=== PATIENT | male | born 1955 | race Caucasian/White ===

== ENCOUNTER → 2018-06-01 | Emergency (ER) | payer SELFPAY | END | disposition home or self-care (01) | LOC: FSED 12:26 | DX: Z53.21 Procedure and treatment not carried out due to patient leaving prior to being seen by health care provider (principal) ==

== ENCOUNTER 2018-06-18 07:39 | Inpatient (IN) | payer MEDICARE ==
[~2018-06-18] VITALS: Ht 185.4 cm; Wt 126.1 kg
[2018-06-18] VITALS (7 sets, daily range): BP systolic 152–173; BP diastolic 66–77
[2018-06-18] MEDS ORDERED: DIATRIZOATE MEGL/DIATRIZOA SOD 30 ML BTL PO ONE (08:11)
[2018-06-18] MEDS ORDERED: ONDANSETRON HCL INJ 2MG/ML 2ML 2 MG/ML VIAL IV PRN (08:45)
[2018-06-18] MEDS ORDERED: SODIUM CHLORIDE 0.9% 1000ML 1,000 ML IV ONE (08:45)
--- NOTE | 2018-06-18 09:00 | Diagnostic Imaging Report ---
EXAM: CHEST SINGLE (PORTABLE) DATE: 06/18/2018 8:00 AM INDICATION:Shortness of breath, abdominal distention COMPARISON: None FINDINGS: Lines and tubes: None Heart size normal. No focal pulmonary opacity, pleural effusion or pneumothorax. There is mild atelectasis at the left lung base. There are calcified densities projected on the right lung apex that may represent granulomatous calcifications in the lung or may be related to calcification of costochondral cartilages. No acute bony abnormality. Upper abdomen unremarkable. IMPRESSION: No evidence for acute disease. Signed by: Dr. Filiberto De Jesus M.D. on 06/18/2018 8:57 AM
--- OUTSIDE RECORDS SUMMARY | 2018-06-18 09:13 | XMS REPORT ---
Author Author [facility] Address Unknown Phone Unavailable Care Team Providers Care Social Staff Worker Name Role Phone Rae HONG Unavailable Unavailable Problems This patient has no known problems. Allergies, Adverse Reactions, Alerts This patient has no known allergies or adverse reactions. Medications This patient has no known medications. Results Test Description Test Time Test Comments Text Results Atomic Results Result Comments CHEST SINGLE (PORTABLE) 2018-06-18 08:50:00 [place] [id number] Patient Name: MYLES GUTIERREZ MR #: [id number] : 1955 Age/Sex: 63/M Req #: [id number] Adm Physician: Ordered by: CHRIS HONG MD Report #: [id number] Location: ER Room/Bed: Procedure: [id number] DX/CHEST SINGLE (PORTABLE) Exam Date: 06/18/18 Exam Time: 0831 REPORT STATUS: Signed EXAM: CHEST SINGLE (PORTABLE) DATE: 06/18/2018 8:00 AM INDICATION:Shortness of breath, abdominal distention COMPARISON: None FINDINGS: Lines and tubes: None Heart size normal. No focal pulmonary opacity, pleural effusion or pneumothorax. There is mild atelectasis at the left lung base. There are calcified densities projected on the right lung apex that may represent granulomatous calcifications in the lung or may be related to calcification of costochondral cartilages. No acute bony abnormality. Upper abdomen unremarkable. IMPRESSION: No evidence for acute disease. Signed by: Dr. Leigh Davis M.D. on 06/18/2018 8:57 AM Dictated By: LEIGH DAVIS MD 6 Transcribed By: CAROL on 06/18/18856 COPY TO: CHRIS HONG MD
[2018-06-18] MEDS ORDERED: DOXYCYCLINE HY100 MG PO (09:30)
[2018-06-18] MEDS ORDERED: FUROSEMIDE40 MG PO (09:30)
[2018-06-18 09:33] LABS: BASOPHILS # (AUTO) 0.1 (0.0-0.1); BASOPHILS % 0.9 % (0.0-1.0); EOSINOPHILS # (AUTO) 0.4 (0.0-0.4); EOSINOPHILS % 5.2 % (0.0-6.0); HEMATOCRIT 38.3 % (38.2-49.6); HEMOGLOBIN 13.1 g/dL (14.0-18.0); LYMPHOCYTES # (AUTO) 1.9 (1.0-3.2); LYMPHOCYTES % 26.7 % (18.0-39.1); MEAN CORPUSCULAR HEMOGLOBIN 32.9 pg (28-32); MEAN CORPUSCULAR HGB CONC 34.2 g/dL (31-35); MEAN CORPUSCULAR VOLUME 96.2 fL (81-99); MONOCYTES # (AUTO) 1.2 (0.2-0.8); MONOCYTES % 17.8 % (4.4-11.3); NEUTROPHILS # (AUTO) 3.4 (2.1-6.9); NEUTROPHILS % 49.1 % (38.7-80.0); PLATELET COUNT 70 x10e3/uL (140-360); RED BLOOD COUNT 3.98 x10e6/uL (4.3-5.7); RED CELL DISTRIBUTION WIDTH 15.5 % (11.7-14.4)
[2018-06-18 09:38] LABS: INR 1.51; PROTHROMBIN TIME 18.8 seconds (11.9-14.5)
[2018-06-18 09:39] LABS: PARTIAL THROMBOPLASTIN TIME 37.8 seconds (23.8-35.5)
[2018-06-18 10:06] LABS: ALANINE AMINOTRANSFERASE 39 IU/L (0-55); ALBUMIN 1.9 g/dL (3.5-5.0); ALBUMIN/GLOBULIN RATIO 0.3 (0.8-2.0); ALKALINE PHOSPHATASE 111 IU/L (40-150); BLOOD UREA NITROGEN 13 mg/dL (7-26); BUN/CREATININE RATIO 17 (6-25); CALCIUM 7.9 mg/dL (8.4-10.2); CARBON DIOXIDE 27 mmol/L (22-29); CHLORIDE 99 mmol/L (98-107); CREATINE KINASE 126 IU/L (30-200); CREATININE, SERUM 0.78 mg/dL (0.72-1.25); EST GLOMERULAR FILTRATION RATE > 60 ML/MIN (60-); GLUCOSE 106 mg/dL (74-118); MAGNESIUM 1.6 MG/DL (1.3-2.1); SODIUM 132 mmol/L (136-145)
[2018-06-18] MEDS ORDERED: SODIUM CHLORIDE 0.9% 50ML 50 ML ONE (11:03)
[2018-06-18] MEDS ORDERED: IOPAMIDOL 370 MG/ML 200 ML INFUS..BTL INJ ONE (11:03)
--- NOTE | 2018-06-18 12:01 | Diagnostic Imaging Report ---
Limited abdominal ultrasound History: Ascites. Comparison: None. Technique/findings: Limited ultrasound was performed of the 4 quadrants of the abdomen to evaluate for ascites. There is moderate volume ascites. IMPRESSION: Moderate volume ascites. Signed by: Dr. Ila Munson MD on 06/18/2018 11:58 AM
--- NOTE | 2018-06-18 12:28 | Diagnostic Imaging Report ---
EXAM: CT Abdomen and Pelvis WITH contrast INDICATION: Abdominal distention. COMPARISON: Limited abdominal ultrasound 06/18/2018. TECHNIQUE: Abdomen and pelvis were scanned utilizing a multidetector helical scanner from the lung base to the pubic symphysis after administration of IV contrast. Coronal and sagittal reformations were obtained. Routine protocol was performed. Scan was performed when during portal venous phase. IV CONTRAST: 100 cc of Isovue 370 ORAL CONTRAST: Water COMPLICATIONS: None RADIATION DOSE: Total DLP: 987.6 mGy*cm Dose modulation, iterative reconstruction, and/or weight based adjustment of the mA/kV was utilized to reduce the radiation dose to as low as reasonably achievable. FINDINGS: LINES and TUBES: None. LOWER THORAX: Patchy dependent atelectasis. Coronary atherosclerosis. HEPATOBILIARY: Cirrhotic morphology to the liver. No evidence of focal lesion. No biliary ductal dilation. GALLBLADDER: Not well evaluated. No definite stone or wall thickening. SPLEEN: Mild splenomegaly, measuring up to 15.4 cm. PANCREAS: No focal masses or ductal dilatation. ADRENALS: No adrenal nodules KIDNEYS/URETERS: Kidneys enhance symmetrically. No evidence of hydronephrosis, solid mass, or stone. GI TRACT: No evidence of bowel distention. The appendix is unremarkable. The descending and transverse colon appears partially decompressed and with associated possible mild wall thickening. PELVIC ORGANS/BLADDER: Unremarkable. LYMPH NODES: No lymphadenopathy. VESSELS: There are left upper quadrant abdominal varices with a splenorenal shunt. The portal vein appears patent. There are scattered moderate atherosclerotic calcifications in the aorta and branch vessels. PERITONEUM / RETROPERITONEUM: Moderate to large volume ascites. No free air. BONES AND SOFT TISSUES: There is an umbilical hernia which contains ascites. CONCLUSION: Cirrhosis with moderate to large volume ascites, splenomegaly, and left upper quadrant abdominal varices, consistent with portal hypertension. Apparent mild wall thickening of the ascending and transverse colon could reflect partial decompression or portal colopathy. Signed by: Dr. Ila Munson MD on 06/18/2018 12:25 PM
[2018-06-18] MEDS ORDERED: POTASSIUM CHLORIDE 20 MEQ TAB CR PO NR (12:30)
--- NOTE | 2018-06-18 15:40 | Diagnostic Imaging Report ---
Procedure: Ultrasound-guided diagnostic and therapeutic paracentesis dielectric machine operator: Ila Munson MD Pre-operative diagnosis: Large volume ascites. Post-operative diagnosis: Moderate to large volume ascites. Conscious Sedation: The patient's heart rate and pulse oximetry were continuously monitored by the IR nurse. Additional Medications: Lidocaine 1% for local anesthesia Estimated blood loss: Minimal Specimens: 6,000 cc of serous ascites Implants: None TECHNIQUE/FINDINGS: Informed consent was obtained from the patient and documented in the medical record. The patient was placed in the supine position. Initial ultrasound demonstrated large volume ascites. The right lower abdomen was prepped and draped in standard sterile fashion. 1% lidocaine was infiltrated into the skin and subcutaneous tissues for local anesthesia. Then under continuous sonographic guidance, a 5 Fr catheter was advanced into the peritoneal space. The catheter was connected to vacuum bottle with subsequent evacuation of 6,000 cc of serous fluid. The catheter was removed. Dermabond and sterile dressing was applied. The patient tolerated the procedure well. Sample was sent to lab. IMPRESSION: Ultrasound-guided diagnostic and therapeutic paracentesis with removal of 6,000 cc of serous fluid. Signed by: Dr. Ila Munson MD on 06/18/2018 3:37 PM
[2018-06-18] MEDS ORDERED: POTASSIUM CHLORIDE 20 MEQ TAB CR PO ONE (16:15)
[2018-06-18 18:16] LABS: CREATINE KINASE MB 4.1 ng/mL (0-5.0)
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
[2018-06-19] VITALS (8 sets, daily range): BP systolic 112–148; BP diastolic 53–66
[2018-06-19] MEDS ORDERED: FUROSEMIDE 40 MG TAB PO ONE (02:00)
[2018-06-19 05:10] LABS: CLARITY,URINE CLEAR (CLEAR); COLOR,URINE YELLOW (YELLOW)
[2018-06-19 05:11] LABS: BILIRUBIN,URINE NEGATIVE (NEGATIVE); KETONES,URINE NEGATIVE (NEGATIVE); LEUKOCYTE ESTERASE ,URINE NEGATIVE (NEGATIVE); NITRITE,URINE NEGATIVE (NEGATIVE); PROTEIN,URINE DIPSTICK NEGATIVE (NEGATIVE); URINE UROBILINOGEN 8 mg/dL (0.2 - 1)
[2018-06-19 05:12] LABS: BACTERIA,URINE FEW /HPF; EPITHELIAL CELLS,URINE RARE /LPF; RBC,URINE 0-5 /HPF (0-5); WBC,URINE (MAN) 0-5 /HPF (0-5)
[2018-06-19 08:04] LABS: BASOPHILS # (AUTO) 0.1 (0.0-0.1); BASOPHILS % 0.9 % (0.0-1.0); EOSINOPHILS # (AUTO) 0.3 (0.0-0.4); EOSINOPHILS % 4.9 % (0.0-6.0); HEMATOCRIT 33.1 % (38.2-49.6); HEMOGLOBIN 11.5 g/dL (14.0-18.0); LYMPHOCYTES # (AUTO) 2.2 (1.0-3.2); LYMPHOCYTES % 34.1 % (18.0-39.1); MEAN CORPUSCULAR HEMOGLOBIN 33.4 pg (28-32); MEAN CORPUSCULAR HGB CONC 34.7 g/dL (31-35); MEAN CORPUSCULAR VOLUME 96.2 fL (81-99); MONOCYTES # (AUTO) 1.1 (0.2-0.8); MONOCYTES % 16.7 % (4.4-11.3); NEUTROPHILS # (AUTO) 2.8 (2.1-6.9); NEUTROPHILS % 43.1 % (38.7-80.0); PLATELET COUNT 61 x10e3/uL (140-360); RED BLOOD COUNT 3.44 x10e6/uL (4.3-5.7); RED CELL DISTRIBUTION WIDTH 15.7 % (11.7-14.4)
[2018-06-19 08:07] LABS: AMPHETAMINES SCREEN,URINE NEGATIVE (NEGATIVE); BENZODIAZEPINES SCREEN,URINE NEGATIVE (NEGATIVE); PHENCYCLIDINE SCREEN,URINE NEGATIVE (NEGATIVE)
[2018-06-19] MEDS: FUROSEMIDE 40 MG TAB PO SCH ×2 (08:36→17:26)
[2018-06-19 08:49] LABS: ALANINE AMINOTRANSFERASE 32 IU/L (0-55); ALBUMIN 1.6 g/dL (3.5-5.0); ALBUMIN/GLOBULIN RATIO 0.3 (0.8-2.0); ALKALINE PHOSPHATASE 81 IU/L (40-150); ANION GAP 8.4 mmol/L (8-16); BLOOD UREA NITROGEN 13 mg/dL (7-26); BUN/CREATININE RATIO 17 (6-25); CALCIUM 7.7 mg/dL (8.4-10.2); CARBON DIOXIDE 27 mmol/L (22-29); CHLORIDE 103 mmol/L (98-107); CREATININE, SERUM 0.77 mg/dL (0.72-1.25); EST GLOMERULAR FILTRATION RATE > 60 ML/MIN (60-); GLUCOSE 88 mg/dL (74-118); POTASSIUM 3.4 mmol/L (3.5-5.1); SODIUM 135 mmol/L (136-145)
[2018-06-19] MEDS ORDERED: SPIRONOLACTONE 25 MG TAB PO SCH (09:00)
[2018-06-19] MEDS ORDERED: POTASSIUM CHLORIDE 20 MEQ TAB CR PO NR (10:45)
[2018-06-19] MEDS ORDERED: FUROSEMIDE 40 MG TAB PO NR (11:00)
[2018-06-19] MEDS: MULTIVITAMINS- 12 INJECTION 10 ML, FOLIC ACID MDV 5 MG, THIAMINE HCL INJ 100 MG in SODI... IV SCH (11:11)
[2018-06-19 12:56] LABS: BODY FLUID APPEARANCE CLOUDY; BODY FLUID COLOR YELLOW; BODY FLUID TYPE PERITONEAL
[2018-06-19 12:58] LABS: RBC,BODY FLUID 700 cells/uL; WBC,BODY FLUID 101 cells/uL
[2018-06-19 14:18] LABS: LYMPHOCYTES,BODY FLUID 10 %; MONO/MACROPHG,BODY FLUID 5 %; NEUTROPHILS,BODY FLUID 76 %; OTHER CELLS,BODY FLUID 9 %
[2018-06-19] MEDS: SPIRONOLACTONE 25 MG TAB PO SCH (16:56)
[2018-06-20] VITALS (7 sets, daily range): BP systolic 131–166; BP diastolic 59–79
[2018-06-20] MEDS: FUROSEMIDE 40 MG TAB PO SCH ×4 (06:05→18:00)
[2018-06-20] MEDS: MULTIVITAMINS- 12 INJECTION 10 ML, FOLIC ACID MDV 5 MG, THIAMINE HCL INJ 100 MG in SODI... IV SCH (07:43)
[2018-06-20] MEDS: SPIRONOLACTONE 25 MG TAB PO SCH ×2 (09:49→17:46)
[2018-06-21] VITALS: BP 144/67
[2018-06-21] MEDS: MULTIVITAMINS- 12 INJECTION 10 ML, FOLIC ACID MDV 5 MG, THIAMINE HCL INJ 100 MG in SODI... IV SCH (03:46)
[2018-06-21 04:00] VITALS: BP 121/56
[2018-06-21 05:08] LABS: BASOPHILS # (AUTO) 0.1 (0.0-0.1); EOSINOPHILS # (AUTO) 0.4 (0.0-0.4); HEMATOCRIT 33.5 % (38.2-49.6); HEMOGLOBIN 11.3 g/dL (14.0-18.0); LYMPHOCYTES # (AUTO) 1.9 (1.0-3.2); LYMPHOCYTES % 31.1 % (18.0-39.1); MEAN CORPUSCULAR HEMOGLOBIN 32.3 pg (28-32); MEAN CORPUSCULAR HGB CONC 33.7 g/dL (31-35); MEAN CORPUSCULAR VOLUME 95.7 fL (81-99); MONOCYTES # (AUTO) 1.1 (0.2-0.8); MONOCYTES % 17.4 % (4.4-11.3); NEUTROPHILS # (AUTO) 2.7 (2.1-6.9); NEUTROPHILS % 44.3 % (38.7-80.0); PLATELET COUNT 52 x10e3/uL (140-360); RED CELL DISTRIBUTION WIDTH 15.2 % (11.7-14.4)
[2018-06-21] MEDS: FUROSEMIDE 40 MG TAB PO SCH ×2 (05:19→18:26)
[2018-06-21 05:43] LABS: ALANINE AMINOTRANSFERASE 31 IU/L (0-55); ALBUMIN 1.5 g/dL (3.5-5.0); ALBUMIN/GLOBULIN RATIO 0.3 (0.8-2.0); ALKALINE PHOSPHATASE 79 IU/L (40-150); ANION GAP 6.8 mmol/L (8-16); BLOOD UREA NITROGEN 11 mg/dL (7-26); BUN/CREATININE RATIO 15 (6-25); CALCIUM 7.6 mg/dL (8.4-10.2); CARBON DIOXIDE 27 mmol/L (22-29); CHLORIDE 104 mmol/L (98-107); CREATININE, SERUM 0.74 mg/dL (0.72-1.25); EST GLOMERULAR FILTRATION RATE > 60 ML/MIN (60-); GLUCOSE 78 mg/dL (74-118); POTASSIUM 3.8 mmol/L (3.5-5.1); SODIUM 134 mmol/L (136-145)
[2018-06-21 08:17] VITALS: BP 122/61
[2018-06-21] MEDS: SPIRONOLACTONE 25 MG TAB PO SCH ×2 (08:41→18:26)
[2018-06-21 10:54] VITALS: BP 122/61
[2018-06-21 11:15] VITALS: BP 152/67
[2018-06-21] MEDS ORDERED: ONDANSETRON HCL 4 MG ORAL DISINTEGRATING TAB PO PRN (14:30)
[2018-06-21 15:37] VITALS: BP 136/65
[2018-06-21] MEDS ORDERED: SPIRONOLACTONE25 MG PO (17:20)
== END 2018-06-21 18:45 | disposition home or self-care (01) | DRG 434 ==
LOC: ER 07:39 → ERHOLD 09:09 → MED/SURG2 10:08
PROVIDERS: ADMIT Internal Medicine Cardiovascular Disease; ATTEND Internal Medicine Cardiovascular Disease
PROC: 0W9G3ZZ Drainage of Peritoneal Cavity, Percutaneous Approach (ICD-10-PCS; principal; 2018-06-18)
DX: K70.31 Alcoholic cirrhosis of liver with ascites (principal); E80.6 Other disorders of bilirubin metabolism; F10.11 Alcohol abuse, in remission; E87.6 Hypokalemia; K70.11 Alcoholic hepatitis with ascites
CPT/HCPCS: 36415; 49083; 71045; 74177; 74470; 76705; 80053; 80307; 80329; 81001; 82105; 82140; 82550; 82553; 83735; 83880; 84484; 85025; 85610; 85730; 86039; 86850; 86900; 87070; 87205; 88112; 88305; 89051; 93005; 93306; 96361; 99284; J2405; J3411; J7030; Q9967

== ENCOUNTER 2018-08-23 08:16 | Emergency (ER) | payer MEDICARE ==
[~2018-08-23] VITALS: Ht 185.4 cm; Wt 126.1 kg
[~2018-08-23 08:16] MED LIST: DOXYCYCLINE HY100 MG PO; FUROSEMIDE40 MG PO; SPIRONOLACTONE25 MG PO
[2018-08-23 08:59] LABS: BASOPHILS # (AUTO) 0.1 (0.0-0.1); BASOPHILS % 0.9 % (0.0-1.0); EOSINOPHILS # (AUTO) 0.3 (0.0-0.4); EOSINOPHILS % 5.5 % (0.0-6.0); HEMATOCRIT 33.5 % (38.2-49.6); HEMOGLOBIN 11.5 g/dL (14.0-18.0); LYMPHOCYTES # (AUTO) 1.4 (1.0-3.2); LYMPHOCYTES % 25.4 % (18.0-39.1); MEAN CORPUSCULAR HEMOGLOBIN 33.1 pg (28-32); MEAN CORPUSCULAR HGB CONC 34.3 g/dL (31-35); MEAN CORPUSCULAR VOLUME 96.5 fL (81-99); MONOCYTES # (AUTO) 0.9 (0.2-0.8); MONOCYTES % 15.9 % (4.4-11.3); NEUTROPHILS # (AUTO) 2.9 (2.1-6.9); NEUTROPHILS % 52.1 % (38.7-80.0); PLATELET COUNT 80 x10e3/uL (140-360); RED BLOOD COUNT 3.47 x10e6/uL (4.3-5.7); RED CELL DISTRIBUTION WIDTH 16.1 % (11.7-14.4)
[2018-08-23 09:09] LABS: INR 1.55; PROTHROMBIN TIME 19.2 seconds (11.9-14.5)
[2018-08-23 09:19] LABS: ALANINE AMINOTRANSFERASE 51 IU/L (0-55); ALBUMIN 1.7 g/dL (3.5-5.0); ALBUMIN/GLOBULIN RATIO 0.3 (0.8-2.0); ALKALINE PHOSPHATASE 83 IU/L (40-150); ANION GAP 8.8 mmol/L (8-16); BLOOD UREA NITROGEN 12 mg/dL (7-26); BUN/CREATININE RATIO 15 (6-25); CALCIUM 7.6 mg/dL (8.4-10.2); CARBON DIOXIDE 24 mmol/L (22-29); CHLORIDE 102 mmol/L (98-107); CREATININE, SERUM 0.79 mg/dL (0.72-1.25); EST GLOMERULAR FILTRATION RATE > 60 ML/MIN (60-); GLUCOSE 125 mg/dL (74-118); POTASSIUM 3.8 mmol/L (3.5-5.1); SODIUM 131 mmol/L (136-145)
[2018-08-23 09:43] LABS: PLATELET ESTIMATE SLIGHTLY DECREASED
--- NOTE | 2018-08-23 10:35 | NUR ---
7,450 mL's evacuated from paracentesis.
--- NOTE | 2018-08-23 10:36 | NUR ---
Patient tolerated procedure well.
[2018-08-23] MEDS ORDERED: ALBUMIN 25% 25GM 100ML 0.25 GM/ML BTL IV ONE ×3 (11:00)
[2018-08-23 12:07] VITALS: BP 132/60
[2018-08-23 12:26] LABS: BODY FLUID APPEARANCE SL.CLOUDY; BODY FLUID COLOR YELLOW
[2018-08-23 12:28] LABS: BODY FLUID TYPE ASCITIES; RBC,BODY FLUID 111 cells/uL; WBC,BODY FLUID 114 cells/uL
[2018-08-23 13:37] LABS: LYMPHOCYTES,BODY FLUID 37 %; MONO/MACROPHG,BODY FLUID 3 %; NEUTROPHILS,BODY FLUID 7 %
[2018-08-23 13:38] LABS: OTHER CELLS,BODY FLUID 53 %
== END 2018-08-23 12:18 | disposition home or self-care (01) ==
LOC: ER 08:16
DX: R06.09 Other forms of dyspnea (principal); K70.31 Alcoholic cirrhosis of liver with ascites; F17.210 Nicotine dependence, cigarettes, uncomplicated
CPT/HCPCS: 36415; 49083; 80053; 82040; 82150; 85025; 85610; 87070; 87205; 88112; 88305; 89051; 99284; P9047

== ENCOUNTER 2018-09-03 07:33 | Emergency (ER) | payer MEDICARE ==
[~2018-09-03] VITALS: Ht 185.4 cm; Wt 126.1 kg
[2018-09-03] MEDS ORDERED: LIDOCAINE HCL 1% LOCAL INJ 20 ML VIAL INJ ONE (09:00)
[2018-09-03 09:10] LABS: BASOPHILS # (AUTO) 0.1 (0.0-0.1); BASOPHILS % 0.9 % (0.0-1.0); EOSINOPHILS # (AUTO) 0.2 (0.0-0.4); EOSINOPHILS % 4.5 % (0.0-6.0); HEMATOCRIT 33.6 % (38.2-49.6); HEMOGLOBIN 11.6 g/dL (14.0-18.0); LYMPHOCYTES # (AUTO) 1.1 (1.0-3.2); LYMPHOCYTES % 21.6 % (18.0-39.1); MEAN CORPUSCULAR HEMOGLOBIN 33.8 pg (28-32); MEAN CORPUSCULAR HGB CONC 34.5 g/dL (31-35); MONOCYTES # (AUTO) 0.9 (0.2-0.8); MONOCYTES % 17.2 % (4.4-11.3); NEUTROPHILS # (AUTO) 2.9 (2.1-6.9); NEUTROPHILS % 55.2 % (38.7-80.0); PLATELET COUNT 61 x10e3/uL (140-360); RED BLOOD COUNT 3.43 x10e6/uL (4.3-5.7); RED CELL DISTRIBUTION WIDTH 15.9 % (11.7-14.4)
[2018-09-03 09:36] LABS: ALANINE AMINOTRANSFERASE 51 IU/L (0-55); ALBUMIN 2.1 g/dL (3.5-5.0); ALBUMIN/GLOBULIN RATIO 0.4 (0.8-2.0); ALKALINE PHOSPHATASE 97 IU/L (40-150); ANION GAP 8.6 mmol/L (8-16); BLOOD UREA NITROGEN 9 mg/dL (7-26); BUN/CREATININE RATIO 11 (6-25); CALCIUM 7.8 mg/dL (8.4-10.2); CARBON DIOXIDE 26 mmol/L (22-29); CHLORIDE 101 mmol/L (98-107); CREATININE, SERUM 0.81 mg/dL (0.72-1.25); EST GLOMERULAR FILTRATION RATE > 60 ML/MIN (60-); GLUCOSE 94 mg/dL (74-118); POTASSIUM 3.6 mmol/L (3.5-5.1); SODIUM 132 mmol/L (136-145)
[2018-09-03 10:19] LABS: BODY FLUID APPEARANCE CLEAR; BODY FLUID COLOR YELLOW; BODY FLUID TYPE PERITONEAL
[2018-09-03 10:37] LABS: RBC,BODY FLUID 279 cells/uL; WBC,BODY FLUID 63 cells/uL
[2018-09-03 11:04] VITALS: BP 113/58
[2018-09-03 12:02] LABS: LYMPHOCYTES,BODY FLUID 78 %; MONO/MACROPHG,BODY FLUID 20 %; NEUTROPHILS,BODY FLUID 2 %
== END 2018-09-03 11:13 | disposition home or self-care (01) ==
LOC: ER 07:33
DX: R10.84 Generalized abdominal pain (principal); K70.31 Alcoholic cirrhosis of liver with ascites; E83.51 Hypocalcemia; F17.210 Nicotine dependence, cigarettes, uncomplicated
CPT/HCPCS: 36415; 49082; 80053; 82140; 83615; 83735; 84157; 85025; 87070; 87205; 89051; 99284; C1729

== ENCOUNTER 2018-09-05 10:33 | Emergency (ER) | payer MEDICARE ==
[~2018-09-05] VITALS: Ht 185.4 cm; Wt 126.1 kg
--- NOTE | 2018-09-05 10:39 | NUR ---
BETZAIDA DECKER,POLISHER [employer]ERAL AT BEDSIDE, LIDOCAINE INJECTED AROUND PARACETESIS SITE, TOLERATED WELL. NO SIGNS OF ACUTE DISTRESS NOTED AT THIS TIME.
== END 2018-09-05 10:50 | disposition home or self-care (01) ==
LOC: ER 10:33
DX: S31.133A Puncture wound of abdominal wall without foreign body, right lower quadrant without penetration into peritoneal cavity, initial encounter (principal); Y84.4 Aspiration of fluid as the cause of abnormal reaction of the patient, or of later complication, without mention of misadventure at the time of the procedure; K74.60 Unspecified cirrhosis of liver; I10 Essential (primary) hypertension; J45.909 Unspecified asthma, uncomplicated
CPT/HCPCS: 99283

== ENCOUNTER → 2018-09-09 | Outpatient (CLI) | payer MEDICARE ==
[2018-09-09 12:48] LABS: INR 1.5; PROTHROMBIN TIME 18.7 seconds (11.9-14.5)
[2018-09-09 15:18] LABS: BODY FLUID APPEARANCE CLOUDY; BODY FLUID COLOR YELLOW; BODY FLUID TYPE PERITONEAL
--- NOTE | 2018-09-09 15:30 | Diagnostic Imaging Report ---
Procedure: Ultrasound-guided paracentesis covering machine operator: Jason Snyder M.D. Pre-operative diagnosis: Ascites Post-operative diagnosis: Ascites Conscious Sedation: None. The patient's heart rate and pulse oximetry were continuously monitored by the IR nurse. Additional Medications: Lidocaine 1% for local anesthesia Estimated blood loss: Less than 1 cc. Specimen: 12,850 cc of cloudy yellow fluid, sample sent to laboratory. Implants: None TECHNIQUE/FINDINGS: Informed consent was obtained from the patient and documented in the medical record. The patient was placed in the supine position. Initial ultrasound demonstrated ascites. The right lower abdomen was prepped and draped in standard sterile fashion. 1% lidocaine was infiltrated into the skin and subcutaneous tissues for local anesthesia. Then under continuous sonographic guidance, a 5 Fr catheter was advanced into the peritoneal space. The catheter was connected to vacuum bottle with subsequent evacuation serous fluid. The catheter was removed and sterile dressing was applied. Sample was sent to the lab. The patient tolerated the procedure well. IMPRESSION: Successful ultrasound-guided paracentesis. Signed by: Jason Snyder on 09/09/2018 3:27 PM
[2018-09-09 16:03] LABS: RBC,BODY FLUID 195 cells/uL; WBC,BODY FLUID 70 cells/uL
[2018-09-09 16:40] LABS: LYMPHOCYTES,BODY FLUID 40 %; MONO/MACROPHG,BODY FLUID 14 %; NEUTROPHILS,BODY FLUID 2 %; OTHER CELLS,BODY FLUID 44 %
== END ==
LOC: US 11:57
PROVIDERS: ATTEND Internal Medicine Gastroenterology
DX: R18.8 Other ascites (principal); K72.01 Acute and subacute hepatic failure with coma
CPT/HCPCS: 36415; 49083; 85049; 85610; 85730; 87070; 87116; 87205; 87206; 88112; 88305; 89051; C1729

== ENCOUNTER → 2018-09-16 | Outpatient (CLI) | payer MEDICARE ==
--- NOTE | 2018-09-16 10:49 | Diagnostic Imaging Report ---
PROCEDURE: Ultrasound-guided paracentesis Procedural Personnel Attending physician(s): Barry Elder MD Pre-procedure diagnosis: Liver failure, ascites Post-procedure diagnosis: Same Indication: Ascites with pain or pressure symptoms Additional clinical history: None Complications: No immediate complications. IMPRESSION: Ultrasound-guided paracentesis with drainage of 14.4 liters of serous fluid. Plan: Resume care by clinical team. PROCEDURE SUMMARY: - Limited abdominal ultrasound - Ultrasound-guided paracentesis - Additional procedure(s): None PROCEDURE DETAILS: Pre-procedure Consent: Informed consent for the procedure including risks, benefits and alternatives was obtained and time-out was performed prior to the procedure. Preparation: The site was prepared and draped using maximal sterile barrier technique including cutaneous antisepsis. Anesthesia/sedation Level of anesthesia/sedation: No sedation Anesthesia/sedation administered by: Not applicable Initial abdominal ultrasound Initial abdominal ultrasound was performed. Findings: Large ascites. A safe window for paracentesis was identified. Paracentesis Local anesthesia was administered. The peritoneal cavity was accessed and fluid return confirmed position. Ascites was drained. The catheter was then removed, and a sterile bandage was applied. Paracentesis access technique: Real-time ultrasound guidance Catheter placed: 5F Yueh Post-drainage ultrasound: Small ascites Additional Details Additional description of procedure: None Equipment details: None Specimens removed: Abdominal fluid Estimated blood loss (mL): Less than 10 Standardized report: [email or web address] Attestation Signer name: Barry Elder MD I attest that I was present for the entire procedure. I reviewed the stored images and agree with the report as written. Signed by: Barry Elder MD on 09/16/2018 10:46 AM
[2018-09-16 12:18] LABS: BODY FLUID APPEARANCE SL.CLOUDY; BODY FLUID COLOR YELLOW; BODY FLUID TYPE PERITONEAL
[2018-09-16 12:19] LABS: RBC,BODY FLUID 385 cells/uL; WBC,BODY FLUID 55 cells/uL
[2018-09-16 12:31] LABS: LYMPHOCYTES,BODY FLUID 17 %; MONO/MACROPHG,BODY FLUID 79 %; NEUTROPHILS,BODY FLUID 3 %; OTHER CELLS,BODY FLUID 1 %
== END ==
LOC: US 08:30
PROVIDERS: ATTEND Internal Medicine Gastroenterology
DX: K72.01 Acute and subacute hepatic failure with coma (principal); R18.8 Other ascites
CPT/HCPCS: 36415; 49083; 87070; 87116; 87205; 87206; 89051; C1729

== ENCOUNTER → 2018-09-22 | Outpatient (CLI) | payer MEDICARE ==
[2018-09-22 13:13] LABS: BODY FLUID APPEARANCE CLOUDY; BODY FLUID COLOR STRAW
[2018-09-22 13:14] LABS: LYMPHOCYTES,BODY FLUID 33 %; MONO/MACROPHG,BODY FLUID 4 %; NEUTROPHILS,BODY FLUID 6 %; OTHER CELLS,BODY FLUID 57 %
[2018-09-22 13:37] LABS: RBC,BODY FLUID 481 cells/uL; WBC,BODY FLUID 78 cells/uL
--- NOTE | 2018-09-22 13:44 | Diagnostic Imaging Report ---
PROCEDURE: Ultrasound-guided paracentesis Procedural Personnel Attending physician(s): Barry Elder MD Pre-procedure diagnosis: Liver failure, ascites Post-procedure diagnosis: Same Indication: Ascites with pain or pressure symptoms Additional clinical history: None Complications: No immediate complications. IMPRESSION: Ultrasound-guided paracentesis with drainage of 15.3 liters of serous fluid. Plan: Resume care by clinical team. PROCEDURE SUMMARY: - Limited abdominal ultrasound - Ultrasound-guided paracentesis - Additional procedure(s): None PROCEDURE DETAILS: Pre-procedure Consent: Informed consent for the procedure including risks, benefits and alternatives was obtained and time-out was performed prior to the procedure. Preparation: The site was prepared and draped using maximal sterile barrier technique including cutaneous antisepsis. Anesthesia/sedation Level of anesthesia/sedation: No sedation Anesthesia/sedation administered by: Not applicable Initial abdominal ultrasound Initial abdominal ultrasound was performed. Findings: Large ascites. A safe window for paracentesis was identified. Paracentesis Local anesthesia was administered. The peritoneal cavity was accessed and fluid return confirmed position. Ascites was drained. The catheter was then removed, and a sterile bandage was applied. Paracentesis access technique: Real-time ultrasound guidance Catheter placed: 5F Yueh Post-drainage ultrasound: Small ascites Additional Details Additional description of procedure: None Equipment details: None Specimens removed: Abdominal fluid Estimated blood loss (mL): Less than 10 Standardized report: [email or web address] Attestation Signer name: Barry Elder MD I attest that I was present for the entire procedure. I reviewed the stored images and agree with the report as written. Signed by: Barry Elder MD on 09/22/2018 1:40 PM
== END ==
LOC: US 09:37
PROVIDERS: ATTEND Internal Medicine Gastroenterology
DX: K72.01 Acute and subacute hepatic failure with coma (principal); R18.8 Other ascites
CPT/HCPCS: 36415; 49083; 87070; 87116; 87205; 87206; 89051; C1729

== ENCOUNTER → 2018-09-29 | Outpatient (CLI) | payer MEDICARE ==
--- NOTE | 2018-09-29 15:35 | Diagnostic Imaging Report ---
PROCEDURE: Ultrasound-guided diagnostic and therapeutic paracentesis Procedural Personnel Attending physician(s): Barry Elder MD Pre-procedure diagnosis: Liver failure, ascites Post-procedure diagnosis: Same Indication: Ascites with pain or pressure symptoms Additional clinical history: None Complications: No immediate complications. IMPRESSION: Ultrasound-guided paracentesis with drainage of 13.5 liters of serous fluid. Plan: Resume care by clinical team. PROCEDURE SUMMARY: - Limited abdominal ultrasound - Ultrasound-guided paracentesis - Additional procedure(s): None PROCEDURE DETAILS: Pre-procedure Consent: Informed consent for the procedure including risks, benefits and alternatives was obtained and time-out was performed prior to the procedure. Preparation: The site was prepared and draped using maximal sterile barrier technique including cutaneous antisepsis. Anesthesia/sedation Level of anesthesia/sedation: No sedation Anesthesia/sedation administered by: Not applicable Initial abdominal ultrasound Initial abdominal ultrasound was performed. Findings: Large ascites. A safe window for paracentesis was identified. Paracentesis Local anesthesia was administered. The peritoneal cavity was accessed and fluid return confirmed position. Ascites was drained. The catheter was then removed, and a sterile bandage was applied. Paracentesis access technique: Real-time ultrasound guidance Catheter placed: 5F Yueh Post-drainage ultrasound: Small ascites Additional Details Additional description of procedure: None Equipment details: None Specimens removed: Abdominal fluid Estimated blood loss (mL): Less than 10 Standardized report: [email or web address] Attestation Signer name: Barry Elder MD I attest that I was present for the entire procedure. I reviewed the stored images and agree with the report as written. Signed by: Barry Elder MD on 09/29/2018 3:31 PM
[2018-09-29 16:34] LABS: BODY FLUID APPEARANCE SL.CLOUDY; BODY FLUID COLOR YELLOW; BODY FLUID TYPE ASCITIES
[2018-09-29 16:35] LABS: RBC,BODY FLUID 334 cells/uL; WBC,BODY FLUID 50 cells/uL
[2018-09-29 18:17] LABS: LYMPHOCYTES,BODY FLUID 30 %; MONO/MACROPHG,BODY FLUID 10 %; NEUTROPHILS,BODY FLUID 6 %; OTHER CELLS,BODY FLUID 54 %
== END ==
LOC: US 13:35
PROVIDERS: ATTEND Internal Medicine Gastroenterology
DX: K72.01 Acute and subacute hepatic failure with coma (principal); R18.8 Other ascites
CPT/HCPCS: 36415; 49083; 87070; 87116; 87205; 87206; 88112; 88305; 89051; C1729

== ENCOUNTER 2018-10-04 17:05 | Inpatient (IN) | payer MEDICARE ==
[~2018-10-04] VITALS: Ht 185.4 cm; Wt 101.2 kg
--- NOTE | 2018-10-04 17:56 | Diagnostic Imaging Report ---
Abdominal ultrasound. History: Ascites. Comparison: The 2018. Discussion: Transverse and longitudinal images of the 4 quadrants of the abdomen were obtained demonstrating a moderate amount of free fluid. IMPRESSION: Moderate ascites. Signed by: Jason Snyder on 10/04/2018 5:52 PM
[2018-10-04 20:20] LABS: BASOPHILS % 0.2 % (0.0-1.0); EOSINOPHILS # (AUTO) 0.2 (0.0-0.4); EOSINOPHILS % 1.5 % (0.0-6.0); HEMATOCRIT 31.3 % (38.2-49.6); HEMOGLOBIN 11.8 g/dL (14.0-18.0); LYMPHOCYTES # (AUTO) 1.3 (1.0-3.2); LYMPHOCYTES % 9.9 % (18.0-39.1); MEAN CORPUSCULAR HEMOGLOBIN 34.7 pg (28-32); MEAN CORPUSCULAR HGB CONC 37.7 g/dL (31-35); MEAN CORPUSCULAR VOLUME 92.1 fL (81-99); MONOCYTES % 15.5 % (4.4-11.3); NEUTROPHILS # (AUTO) 9.5 (2.1-6.9); NEUTROPHILS % 72.1 % (38.7-80.0); PLATELET COUNT 114 x10e3/uL (140-360); RED CELL DISTRIBUTION WIDTH 14.1 % (11.7-14.4)
[2018-10-04 20:39] LABS: ALBUMIN 1.7 g/dL (3.5-5.0); ALBUMIN/GLOBULIN RATIO 0.4 (0.8-2.0); ANION GAP 15.2 mmol/L (8-16); CALCIUM 8.1 mg/dL (8.4-10.2); CREATININE, SERUM 2.73 mg/dL (0.72-1.25)
[2018-10-04 20:47] LABS: POTASSIUM 6.2 mmol/L (3.5-5.1)
[2018-10-04] MEDS ORDERED: SODIUM BICARBONATE 8.4% INJ 50 ML SYR IV STA (20:53)
[2018-10-04] MEDS ORDERED: DEXTROSE 50% SYRINGE 50 ML IV STA (20:53)
[2018-10-04] MEDS ORDERED: SODIUM CHLORIDE 0.9% 1000ML 1,000 ML IV SCH (21:00)
[2018-10-04] MEDS ORDERED: CALCIUM GLUCONATE 10% INJ 4.65 MEQ in SODIUM CHLORIDE 0.9% 50ML 50 ML IV ONE (21:00)
[2018-10-04] MEDS ORDERED: INSULIN REGULAR, HUMAN 100 UNIT/1 ML 3ML VIAL SQ ONE (21:00)
[2018-10-04] MEDS ORDERED: CALCIUM GLUCONATE 10% INJ 0.465 MEQ/ML VIAL ONE (21:03)
[2018-10-04 21:04] LABS: MAGNESIUM 2.3 MG/DL (1.3-2.1)
[2018-10-04] MEDS ORDERED: SODIUM CHLORIDE 0.9% 50ML 50 ML ONE (21:05)
[2018-10-04 22:12] LABS: LYMPHOCYTES % (MANUAL) 3 % (19-48); MONOCYTES % (MANUAL) 15 % (3.4-9.0); NEUTROPHILS % (MANUAL) 81 % (40-74); PLATELET ESTIMATE ADEQUATE; PLATELET MORPHOLOGY COMMENT NORMAL; RBC MORPHOLOGY COMMENT NORMAL
[2018-10-04] MEDS: SODIUM CHLORIDE 0.9% 1000ML 1,000 ML IV SCH ×2 (22:13→23:30)
[2018-10-04 23:01] VITALS: BP 93/51
[2018-10-04 23:11] VITALS: BP 93/51
[2018-10-04] MEDS ORDERED: ONDANSETRON HCL INJ 2MG/ML 2ML 2 MG/ML VIAL IV STA (23:19)
[2018-10-04] MEDS ORDERED: LACTULOSE SYRUP 20 GM/30 ML UDC PO PRN (23:30)
[2018-10-04] MEDS ORDERED: ONDANSETRON HCL INJ 2MG/ML 2ML 2 MG/ML VIAL IV PRN (23:30)
[2018-10-05] VITALS (15 sets, daily range): BP systolic 84–134; BP diastolic 22–104
[2018-10-05] MEDS ORDERED: PANTOPRAZOLE 40 MG 10ML VIAL IV STA (00:16)
[2018-10-05 00:17] LABS: ANION GAP 13.3 mmol/L (8-16); CALCIUM 8.2 mg/dL (8.4-10.2); CREATININE, SERUM 2.79 mg/dL (0.72-1.25); POTASSIUM 5.3 mmol/L (3.5-5.1)
[2018-10-05] MEDS ORDERED: LACTULOSE SYRUP 20 GM/30 ML UDC PO PRN ×3 (00:30→08:00)
[2018-10-05 01:26] LABS: INR 1.56; PARTIAL THROMBOPLASTIN TIME 39.6 seconds (23.8-35.5); PROTHROMBIN TIME 19.3 seconds (11.9-14.5)
[2018-10-05] MEDS ORDERED: CEFTRIAXONE SOD 1 GM/NS 50 ML 50 ML IV STA (03:25)
[2018-10-05] MEDS: CEFTRIAXONE SOD 1 GM/NS 50 ML 50 ML IV SCH (03:30)
--- NOTE | 2018-10-05 05:17 | NUR ---
AT THIS TIME PATIENT HAS HAD TWO LARGE BOWEL MOVEMENTS AFTER NURSE ADMINISTERED 1 DOSE OF LACTULOSE. PATIENT IS NOW AAOX4 BUT STILL VERY LETHARGIC, EASILY AROUSED. WILL CONTINUE TO MONITOR.
[2018-10-05 05:31] LABS: BASOPHILS % 0.1 % (0.0-1.0); EOSINOPHILS # (AUTO) 0.2 (0.0-0.4); EOSINOPHILS % 1.6 % (0.0-6.0); HEMATOCRIT 31.4 % (38.2-49.6); HEMOGLOBIN 11.4 g/dL (14.0-18.0); LYMPHOCYTES # (AUTO) 1.3 (1.0-3.2); LYMPHOCYTES % 10.8 % (18.0-39.1); MEAN CORPUSCULAR HGB CONC 36.3 g/dL (31-35); MEAN CORPUSCULAR VOLUME 93.7 fL (81-99); MONOCYTES # (AUTO) 1.9 (0.2-0.8); MONOCYTES % 15.7 % (4.4-11.3); NEUTROPHILS # (AUTO) 8.6 (2.1-6.9); NEUTROPHILS % 71.1 % (38.7-80.0); PLATELET COUNT 114 x10e3/uL (140-360); RED BLOOD COUNT 3.35 x10e6/uL (4.3-5.7); RED CELL DISTRIBUTION WIDTH 14.2 % (11.7-14.4)
[2018-10-05] MEDS: LACTULOSE SYRUP 20 GM/30 ML UDC PO SCH ×3 (05:43→22:49)
[2018-10-05 05:50] LABS: ALBUMIN 1.7 g/dL (3.5-5.0); ALBUMIN/GLOBULIN RATIO 0.4 (0.8-2.0); ANION GAP 12.5 mmol/L (8-16); CALCIUM 8.3 mg/dL (8.4-10.2); CREATININE, SERUM 2.79 mg/dL (0.72-1.25); PHOSPHORUS 6.8 MG/DL (2.3-4.7); POTASSIUM 5.5 mmol/L (3.5-5.1)
[2018-10-05 07:07] LABS: MAGNESIUM 2.3 MG/DL (1.3-2.1)
--- NOTE | 2018-10-05 07:52 | Diagnostic Imaging Report ---
EXAMINATION: CHEST SINGLE (PORTABLE) INDICATION: PARACENTESIS PREPROCEDURE COMPARISON: Abdominal CT 06/18/2018 FINDINGS: AP view TUBES and LINES: None. LUNGS: Lungs are well inflated. Lungs are clear. There is no evidence of pneumonia or pulmonary edema. PLEURA: No pleural effusion or pneumothorax. HEART AND MEDIASTINUM: The cardiomediastinal silhouette is unremarkable. BONES AND SOFT TISSUES: No acute osseous lesion. Soft tissues are unremarkable. UPPER ABDOMEN: No free air under the diaphragm. IMPRESSION: No acute thoracic abnormality. Signed by: Eligio Serrano DO on 10/05/2018 7:49 AM
[2018-10-05 08:14] LABS: EOSINOPHILS % (MANUAL) 1 % (0-7); LYMPHOCYTES % (MANUAL) 10 % (19-48); MONOCYTES % (MANUAL) 16 % (3.4-9.0); NEUTROPHILS % (MANUAL) 73 % (40-74); PLATELET ESTIMATE SLIGHTLY DECREASED
[2018-10-05 08:17] LABS: RBC MORPHOLOGY COMMENT NORMAL
[2018-10-05] MEDS: PANTOPRAZOLE 40 MG 10ML VIAL IV SCH ×2 (09:10→17:17)
[2018-10-05 09:56] LABS: ALBUMIN 1.5 g/dL (3.5-5.0); ALBUMIN/GLOBULIN RATIO 0.4 (0.8-2.0); ANION GAP 9.3 mmol/L (8-16); CALCIUM 7.8 mg/dL (8.4-10.2); CREATININE, SERUM 2.72 mg/dL (0.72-1.25); POTASSIUM 5.3 mmol/L (3.5-5.1)
--- NOTE | 2018-10-05 10:01 | NUR ---
[facility] STALLWORTH REGARDING LABS
[2018-10-05] MEDS ORDERED: SODIUM CHLORIDE 3% 500 ML IV ONE ×2 (10:15→12:45)
--- NOTE | 2018-10-05 12:26 | Diagnostic Imaging Report ---
Chest, 1 view, 10/05/2018. History: Central line placement. Comparison: X-ray from earlier today. Findings: A new right IJ central line terminates at the cavoatrial junction. There is no evidence of pneumothorax. The cardiomediastinal silhouette and pulmonary vasculature are within normal limits for a portable exam. There is no focal consolidation or pleural effusion. Multiple old right rib fractures are again noted. There are no acute osseous or soft tissue abnormalities. Impression: No evidence of complication post right IJ central line placement. Central line is in proper position. Signed by: Jason Snyder on 10/05/2018 12:22 PM
--- NOTE | 2018-10-05 14:03 | NUR ---
[facility] STALL[facility] FOR ORDERS FOR PARA FLUID LAB ORDERS
[2018-10-05] MEDS ORDERED: SODIUM CHLORIDE 0.9% 1000ML 1,000 ML IV STA (15:47)
--- NOTE | 2018-10-05 15:50 | NUR ---
NOTIFIED DR. JARRETT OF HYPOTENSION POST PARACENTESIS. ORDERS RECEIVED FOR NS BOLUS AND ALBUMIN T.O.R.B.
[2018-10-05] MEDS ORDERED: ALBUMIN 25% 25GM 100ML 0.25 GM/ML BTL IV NR (16:00)
--- NOTE | 2018-10-05 16:25 | Diagnostic Imaging Report ---
Central line placement, 10/05/2018. History: Hyponatremia. Comparison: None available. Memorial Adviser: Dr. Snyder. Medication: 5 cc of 1% lidocaine without epinephrine. Conscious sedation: None. EBL: < 2 cc. Specimen: None. Technique: After informed consent and timeout procedure, the patient's right neck was prepped and draped in a sterile fashion. The skin was anesthetized with lidocaine. The right internal jugular vein was accessed using a micropuncture site with ultrasound guidance. Sonographic images were saved to PACS. A 0.035-in. wire was advanced through the micropuncture sheath into the vein. The tract was dilated. A 7 Luxembourgish 16 cm triple-lumen central line was advanced over the wire into the vessel. The catheter was secured with suture. Dressing was applied. The patient tolerated the procedure well without evidence of complication. Postprocedure chest x-ray was ordered. IMPRESSION: Successful central line placement with ultrasound guidance. Catheter is ready for immediate use. Signed by: Jason Snyder on 10/05/2018 4:22 PM
--- NOTE | 2018-10-05 16:30 | Consultation ---
DATE OF CONSULTATION: 10/05/2018 HISTORY OF PRESENT ILLNESS: Most of the history from daughter, electronic records, partly from the patient. A 63-year-old gentleman with underlying history of alcoholic cirrhosis with portal hypertension, recurrent ascites requiring almost weekly paracentesis, large volume. He was initially brought in with lethargy and weakness. He apparently had missed his paracentesis as well. Here, he was found to have acute kidney injury, mild hyperkalemia with a potassium 5.3. Initial serum sodium 114, dropped down to 109, bicarbonate 20 with a BUN 56, and creatinine 2.7. He does not have a Servin. His phosphorus level is 6.8 and magnesium 2.3. Total bilirubin is 5.1 with 118 AST, ALT 103, and alkaline phosphatase 78. His albumin is 1.5. CBC shows white count 12.1, hemoglobin 11.4, and platelets 114. Urinalysis not done. The patient is currently lying on his side. According to daughter, the patient has complaints of lower backache. To me, he states he does not "feel good," but denies any specific complaints. Appears deeply icteric, has some tattoos all over, some darkening of skin all over. ALLERGIES: TO CODEINE. CURRENT MEDICATIONS: The patient is on lactulose. He is on antibiotics, ceftriaxone has been started on 3% hypertonic saline at 30 mL an hour. He is on Protonix 40 IV b.i.d. He is on lactulose 20 mg q.8. SOCIAL HISTORY: The patient has quit alcohol and does not drink and does not smoke. The patient's brother and daughter by bedside. FAMILY HISTORY: Significant for diabetes. PHYSICAL EXAMINATION: GENERAL: He does not appear to be in any respiratory distress. VITAL SIGNS: Has a blood pressure of 90/65, pulse rate 82, and afebrile. HEAD AND NECK: Cornea clear. Conjunctivae icteric. Oral mucosa very dry. LUNGS: Decreased air entry, but relatively clear. No rales. HEART: S1 and S2 audible. ABDOMEN: Obese, soft, and nontender. Recent paracentesis as of today. EXTREMITIES: Lower extremity examination shows trace edema. IMPRESSION: Acute kidney injury, most likely hepatorenal syndrome with hyperkalemia, metabolic acidosis, profound hyponatremia, multifactorial and end-stage liver disease with portal hypertension. Recent paracentesis must rule out sepsis and infection. PLAN: On placing a Servin catheter. Send urine sodium, creatinine, and calculate fractional excretion of sodium. Obtain serum uric acid level, serial sodium levels q.2 hours. We will repeat labs and treat hyperkalemia. I will resuscitate volume with normal saline. Reluctant to use IV albumin right now because of low-sodium. Discussed with daughter. All questions are answered. Extremely poor prognosis. Discussed with bedside RN. She is going to call me with lab results. Fluid restriction of 800 mL p.o. over 24 hours emphasized. MD JOYCE Yoon/MODL /[id number]
[2018-10-05 16:31] LABS: ANION GAP 11.5 mmol/L (8-16); CALCIUM 7.8 mg/dL (8.4-10.2); CREATININE, SERUM 2.85 mg/dL (0.72-1.25)
[2018-10-05 16:32] LABS: POTASSIUM 5.5 mmol/L (3.5-5.1)
--- NOTE | 2018-10-05 17:39 | Diagnostic Imaging Report ---
Procedure: Ultrasound-guided paracentesis line camera operator: Jason Snyder M.D. Pre-operative diagnosis: Ascites Post-operative diagnosis: Ascites Conscious Sedation: None. The patient's heart rate and pulse oximetry were continuously monitored by the IR nurse. Additional Medications: Lidocaine 1% for local anesthesia Estimated blood loss: Less than 1 cc. Specimen: 7400 cc of yellow fluid Implants: None TECHNIQUE/FINDINGS: Informed consent was obtained from the patient and documented in the medical record. The patient was placed in the supine position. Initial ultrasound demonstrated ascites. The right lower abdomen was prepped and draped in standard sterile fashion. 1% lidocaine was infiltrated into the skin and subcutaneous tissues for local anesthesia. Then under continuous sonographic guidance, a 5 Fr catheter was advanced into the peritoneal space. The catheter was connected to vacuum bottle with subsequent evacuation of 7400 cc of serous fluid. The catheter was removed and sterile dressing was applied. Sample was sent to the lab. The patient tolerated the procedure well. IMPRESSION: Successful ultrasound-guided paracentesis. Signed by: Jason Snyder on 10/05/2018 5:36 PM
--- NOTE | 2018-10-05 17:40 | NUR ---
DR JARRETT NOTIFIED OF LABS AND PT VS, ORDERS FOR NEW IVF AND LABS RECVD. PT STABLE, FAMILY AT BEDSIDE. BATHED AND LINENS AND DRESSINGS CHANGED.
--- NOTE | 2018-10-05 18:17 | Diagnostic Imaging Report ---
Retroperitoneal ultrasound Indication: Acute kidney injury Technique: Select images from retroperitoneal ultrasound provided for interpretation: Comparison: CT abdomen/pelvis 06/18/2018. Findings: The right kidney measures 10.6 cm in greatest length. The echotexture is increased. There is no evidence for mass. There is no collecting system dilatation or evidence of obstruction. No renal calculi evident. No adjacent free fluid or fluid collections. The left kidney measures 10.5 cm in greatest length. The echotexture is increased. There is no evidence for mass. There is no collecting system dilatation or evidence of obstruction. No renal calculi evident. No adjacent free fluid or fluid collections. Bladder is collapsed around a Servin catheter. There is diffuse abdominal pelvic ascites, with moderate amount of free fluid in the upper abdomen. Survey images of the liver demonstrates sclerosis. No mass in the visualized portions. Visualized portions of the spleen are unremarkable. IMPRESSION: 1. Increased renal echotexture suggestive of medical renal disease. No hydronephrosis. 2. Cirrhosis. Ascites. Signed by: Dr. Kitty Vail MD on 10/05/2018 6:14 PM
[2018-10-05] MEDS: SODIUM BICARBONATE 8.4% 150 ML in DEXTROSE 5% 1,000 ML IV SCH (18:23)
--- NOTE | 2018-10-05 20:35 | NUR ---
Notified to Dr. Morris about labs results. NNO.
[2018-10-06] VITALS (26 sets, daily range): BP systolic 70–120; BP diastolic 25–62
[2018-10-06 00:13] LABS: BILIRUBIN,URINE NEGATIVE (NEGATIVE); CLARITY,URINE CLOUDY (CLEAR); COLOR,URINE YELLOW (YELLOW); KETONES,URINE NEGATIVE (NEGATIVE); LEUKOCYTE ESTERASE ,URINE TRACE (NEGATIVE); NITRITE,URINE NEGATIVE (NEGATIVE); PROTEIN,URINE DIPSTICK NEGATIVE (NEGATIVE); URINE UROBILINOGEN 1 mg/dL (0.2 - 1)
[2018-10-06 00:29] LABS: ALBUMIN 1.9 g/dL (3.5-5.0); ALBUMIN/GLOBULIN RATIO 0.5 (0.8-2.0); ANION GAP 11.9 mmol/L (8-16); CALCIUM 7.9 mg/dL (8.4-10.2); CREATININE, SERUM 2.65 mg/dL (0.72-1.25); POTASSIUM 4.9 mmol/L (3.5-5.1)
[2018-10-06 00:31] LABS: CREATININE,URINE RANDOM 107.36 mg/dL (63-166)
[2018-10-06 00:40] LABS: BACTERIA,URINE MANY /HPF; EPITHELIAL CELLS,URINE FEW /LPF; RBC,URINE >50 /HPF (0-5); RENAL EPITHELIAL CELLS,URINE FEW; TRANSITIONAL EPI CELLS,URINE FEW; WBC,URINE (MAN) 21-50 /HPF (0-5)
[2018-10-06 00:47] LABS: SODIUM,URINE < 20 mmol/L
--- NOTE | 2018-10-06 01:01 | NUR ---
Dr. Mendez round the patient. MD ordered labs at this time.
[2018-10-06] MEDS: CEFTRIAXONE SOD 1 GM/NS 50 ML 50 ML IV SCH (02:56)
[2018-10-06 05:29] LABS: ALBUMIN 1.8 g/dL (3.5-5.0); ALBUMIN/GLOBULIN RATIO 0.5 (0.8-2.0); ANION GAP 10.8 mmol/L (8-16); CALCIUM 7.9 mg/dL (8.4-10.2); CREATININE, SERUM 2.72 mg/dL (0.72-1.25); POTASSIUM 4.8 mmol/L (3.5-5.1)
[2018-10-06] MEDS: SODIUM BICARBONATE 8.4% 150 ML in DEXTROSE 5% 1,000 ML IV SCH ×2 (05:30→17:00)
--- NOTE | 2018-10-06 05:32 | NUR ---
Patient had three times liquid brown BM, assisted to cleaned and changed linen/gown and diaper. Patient's daughter in the room. Will continue to monitor.
[2018-10-06 05:59] LABS: FOLATE 9.5 ng/mL (7.0-15.4)
--- NOTE | 2018-10-06 06:06 | NUR ---
Central line dressing changed, patient tolerated well. Will continue to monitor.
[2018-10-06 06:22] LABS: FERRITIN 719.15 ng/mL (21.81-274.66)
[2018-10-06] MEDS: LACTULOSE SYRUP 20 GM/30 ML UDC PO SCH (06:32)
--- NOTE | 2018-10-06 07:13 | NUR ---
Report given to oncoming nurse Vi, walking round done.
[2018-10-06] MEDS: SODIUM CHLORIDE 0.9% 1000ML 1,000 ML IV SCH ×2 (08:17→22:30)
[2018-10-06] MEDS: PANTOPRAZOLE 40 MG 10ML VIAL IV SCH ×2 (09:27→18:49)
[2018-10-06 12:46] LABS: ANION GAP 12.6 mmol/L (8-16); CALCIUM 7.9 mg/dL (8.4-10.2); CREATININE, SERUM 2.42 mg/dL (0.72-1.25); POTASSIUM 4.6 mmol/L (3.5-5.1)
--- NOTE | 2018-10-06 15:17 | NUR ---
pt keeps turning back to right side. blanchable redness to right hip noted. pt teaching on importance of turning and risks of staying in one position. family at bedside, family verbalizes will help keep pt turned. will continue to monitor
[2018-10-06] MEDS ORDERED: ALBUMIN 25% 25GM 100ML 0.25 GM/ML BTL IV ONE (16:00)
[2018-10-06] MEDS ORDERED: ALBUMIN 25% 25GM 100ML 100 ML IV ONE (16:20)
--- NOTE | 2018-10-06 19:00 | NUR ---
Report received. Assumed care. Assessment done. See interventions. RIJ triple lumen catheter with NS @ 70ml/hr. O2 pr NC 2L. Family at bedside. Introduced self and answered questions.
--- NOTE | 2018-10-06 19:15 | NUR ---
Dr. Morris here. Labs ordered and drawn.
[2018-10-06 19:39] LABS: ANION GAP 11.5 mmol/L (8-16); CALCIUM 7.8 mg/dL (8.4-10.2); CREATININE, SERUM 2.45 mg/dL (0.72-1.25); POTASSIUM 4.5 mmol/L (3.5-5.1)
--- NOTE | 2018-10-06 21:00 | NUR ---
Labs reported to Dr. Monroe. No new orders. Addendum: 10/06/18 at 2334 by Sue Abrams RN was Dr. Prince.
[2018-10-07] VITALS (12 sets, daily range): BP systolic 73–124; BP diastolic 44–96
--- NOTE | 2018-10-07 00:41 | NUR ---
Pulled off drsg to central line. Drsg change using central line drsg kit.
--- NOTE | 2018-10-07 00:47 | NUR ---
Cleaned for smear of brown stool.
[2018-10-07] MEDS: CEFTRIAXONE SOD 1 GM/NS 50 ML 50 ML IV SCH (03:15)
[2018-10-07] MEDS: SODIUM BICARBONATE 8.4% 150 ML in DEXTROSE 5% 1,000 ML IV SCH (04:30)
--- NOTE | 2018-10-07 05:00 | NUR ---
Complete bed bath given. Hair shampooed. Bed linens changed.
[2018-10-07 05:17] LABS: BASOPHILS % 0.2 % (0.0-1.0); EOSINOPHILS # (AUTO) 0.2 (0.0-0.4); HEMATOCRIT 24.5 % (38.2-49.6); HEMOGLOBIN 9.1 g/dL (14.0-18.0); LYMPHOCYTES # (AUTO) 1.2 (1.0-3.2); LYMPHOCYTES % 13.6 % (18.0-39.1); MEAN CORPUSCULAR HEMOGLOBIN 34.9 pg (28-32); MEAN CORPUSCULAR HGB CONC 37.1 g/dL (31-35); MEAN CORPUSCULAR VOLUME 93.9 fL (81-99); MONOCYTES # (AUTO) 1.3 (0.2-0.8); NEUTROPHILS # (AUTO) 6.1 (2.1-6.9); NEUTROPHILS % 68.6 % (38.7-80.0); PLATELET COUNT 67 x10e3/uL (140-360); RED BLOOD COUNT 2.61 x10e6/uL (4.3-5.7); RED CELL DISTRIBUTION WIDTH 14.3 % (11.7-14.4)
[2018-10-07 05:36] LABS: ALBUMIN 2.1 g/dL (3.5-5.0); ALBUMIN/GLOBULIN RATIO 0.7 (0.8-2.0); ANION GAP 9.9 mmol/L (8-16); CALCIUM 7.9 mg/dL (8.4-10.2); CREATININE, SERUM 2.53 mg/dL (0.72-1.25); POTASSIUM 4.9 mmol/L (3.5-5.1)
[2018-10-07] MEDS: PANTOPRAZOLE 40 MG 10ML VIAL IV SCH (08:28)
[2018-10-07] MEDS ORDERED: LACTULOSE SYRUP 20 GM/30 ML UDC PO SCH (09:00)
--- NOTE | 2018-10-07 10:36 | NUR ---
ASSESSMENT: Spiritual distress Pt's brother requested plate worker helper visit. Pt not very verbal-primarily yes/no answers to questions. Pt requested prayer. Intervention: Provided unhurried pastoral presence. Provided prayer. Provided information on how to reach plate worker helper, if needed. Outcome: Will be available if pt requests follow-up [facility] O: [phone] Pager: [phone] ([phone] number calling from) .
[2018-10-07] MEDS: SODIUM CHLORIDE 0.9% 1000ML 1,000 ML IV SCH (11:49)
--- NOTE | 2018-10-07 12:47 | NUR ---
SPOKE WITH FAMILY ABOUT CHOICE FOR HOSPICE ORDER. THEY SIGNED CHOICE FOR [facility] FILED IN CHART AND CONTACTED REP TO MEET WITH FAMILY
--- NOTE | 2018-10-07 17:04 | NUR ---
report called to [facility] area room 322.
--- NOTE | 2018-11-02 16:22 | Discharge Summary ---
CHIEF COMPLAINT: Recent weakness and poor ambulation. FINAL DIAGNOSES: 1. Liver cirrhosis, end-stage. 2. Hepatic encephalopathy. 3. Congestive heart failure. DISPOSITION: Hospice. HOSPITAL COURSE: A 63-year-old male with known history of hypertension, bronchial asthma, liver cirrhosis, requiring weekly paracentesis, brought to the ER with a 2-3 day history of increased weakness for evaluation with nausea, mild confusion, underwent review and evaluation in the emergency room. The patient was a little bit hypotensive, was demonstrating 3+ ascites in the abdomen evaluation. Further review and monitoring, the patient was admitted to facility for treatment regarding generalized weakness, hepatic encephalopathy, hyponatremia, will be undergoing IV normal saline hydration, discontinue diuretics. With admission, the patient was undergoing Nephrology review with Dr. Morris and with the workup and care in the facility, the patient was demonstrating issues findings regarding acute kidney injury, mild hyperkalemia. With further review of the patient, his findings were acute kidney injury, most likely hepatorenal syndrome, hyperkalemia, metabolic acidosis, profound hyponatremia, multifactorial and end-stage liver disease with portal hypertension. Recent paracentesis must rule out sepsis and infection. I agree with placing a Servin catheter. Monitor closely the patient's potassium levels, reluctant to use IV albumin right now because of the low sodium. The patient is placed in the extremely poor prognosis. He will be on a fluid restriction of 800 mL over 24 hours time. From the emergency room, the patient was placed in ICU, was on a cardiac diet, was resting comfortable where the patient was showing evidence of confusion, was on IV fluids, given PPIs and the lactulose, antibiotics. Laboratory studies were monitored closely. Continuing to follow up the sodium and potassium levels. Early on discussions are being carried out with the patient's son and daughter about the patient's poor prognosis. The patient being reviewed by GI regarding the liver status of the patient and following Dr. Arnaud Mendez's impression was cirrhosis of the liver secondary to ethanol abuse decompensated, ascites. Hyponatremia, elevated kidney functions, anemia, elevated ammonia level. As care is progressing further, the patient is becoming more alert. Underwent paracentesis, 7400 mL of fluid were removed. Labs were continued to be monitored. Ammonia level was being monitored further as well. The renal diet was continuing. With further discussion with the patient's family members, hospice was elected for care. The patient was noted to be lethargic, but arousable. The patient will be able to be discharged to be carried out further in the medical care with hospice. The patient to be transferred to [facility] for continuation of management of care with hospice coverage. The hospice elected was [facility]. IMAGIN. Abdomen ultrasound shows moderate ascites. Renal ultrasound reveals increased renal echotexture suggestive of medical renal disease. No hydronephrosis. 2. Cirrhosis with ascites. Chest x-ray shows no acute thoracic abnormality. Ultrasound guided paracentesis as mentioned shows productive evacuation of 7400 mL of serous fluid. Sample was sent to the lab. CULTURES: Urine unremarkable. The peritoneal fluid is unremarkable. LABORATORY STUDIES: Shows a CBC initial white cell count 13,000. Followup white cell counts continued to follow up with final study 8800. Initial H and H were 11.8 and 31.3, final study following 9.1 and 24.5, platelets initially were 114,000 fell to 67,000. Urinalysis shows cloudy clarity, 3+ occult blood, greater than 50 rbc's by high-power field, 21-50 wbc's per high-power field, many bacteria. Chemistries begins with electrolyte panel showing a decreased sodium at 112, potassium is elevated at 6.2. Kidney functions; BUN 55, creatinine 2.73, glucose is a 71. Liver studies were showing total bilirubin of 5.9, AST 125, ALT 112. Followup chemistries shows sodium still running at 114., potassium still 5.3, BUN of 53, creatinine 2.79. Ammonia level initial was 270, followup study 132. Further electrolyte watch shows that sodium dropped to 109 on 10/05, potassium is still running in the mid 5s. AST and ALT were improving level. AST was 118, ALT 103. Total bilirubin has improved slightly 5.1. On 10/06/2018, sodium was 120, potassium improved to 4.9. Kidney functions were still elevated. Anemia panel showing iron level of 135, TIBC 162, percent saturation 83, ferritin level 719.15. Final sodium 120, final potassium 4.9, final BUN 53, final creatinine 2.53, final total bilirubin 4.6, AST 108, ALT 91, ammonia level 200. As mentioned, the patient will be requiring further care, but we directed to hospice. With Case Management assistance, the patient is able to be transferred to [facility] with hospice coverage to [facility]. Prognosis continued to be poor. I will be glad to liaison with the hospice service if requested on this patient's care. Dictated by RICHARD Macias Luis Antonio Mendez MD CC/DENZEL /[id number]
== END 2018-10-07 18:09 | disposition hospice, inpatient (51) | DRG 433 ==
LOC: ER 17:09 → ERHOLD 21:29 → ICU 22:30
PROC: 0W9G3ZZ Drainage of Peritoneal Cavity, Percutaneous Approach (ICD-10-PCS; principal; 2018-10-05)
PROC: 02HV33Z Insertion of Infusion Device into Superior Vena Cava, Percutaneous Approach (ICD-10-PCS; 2018-10-05)
DX: K70.31 Alcoholic cirrhosis of liver with ascites (principal); N17.9 Acute kidney failure, unspecified; E87.5 Hyperkalemia; K74.60 Unspecified cirrhosis of liver; I12.9 Hypertensive chronic kidney disease with stage 1 through stage 4 chronic kidney disease, or unspecified chronic kidney disease; N18.3 Chronic kidney disease, stage 3 (moderate); D64.9 Anemia, unspecified; F10.21 Alcohol dependence, in remission
CPT/HCPCS: 36415; 36556; 49083; 71045; 74470; 76705; 76770; 76937; 80048; 80053; 81001; 81161; 81220; 82140; 82570; 82607; 82728; 82746; 82977; 83540; 83690; 83735; 83880; 84100; 84295; 84300; 84466; 84550; 85025; 85045; 85610; 85730; 87070; 87086; 87205; 93005; 99284; C1729; C1751; J0610; J0696; J2405; J7030; J7070; J7799; P9047